=== PATIENT | female | born 1995 | race Caucasian/White ===

== ENCOUNTER 2017-03-08 10:27 | Emergency (ER) | payer BC ==
--- NOTE | 2017-03-08 10:45 | ER Document Report ---
HPI - HPI Patient complains to provider of: dysuria Onset: This morning Onset/Duration: Gradual Quality of pain: Burning Pain Level: 1 Context: Patient presents complaining of dysuria and urinary frequency that started today. Patient denies any fever, abdominal pain, or back pain. Associated Symptoms: Other - Dysuria, frequency. denies: Fever Exacerbated by: Denies Relieved by: Denies Similar symptoms previously: No Recently seen / treated by doctor: No - ROS ROS below otherwise negative: Yes Systems Reviewed and Negative: Yes All other systems reviewed and negative - CONSTITUTIONAL Constitutional: DENIES: Fever, Chills - GASTROINTESTINAL Gastrointestinal: DENIES: Abdominal Pain, Nausea - URINARY Urinary: REPORTS: Dysuria, Frequency - MUSCULOSKELETAL Musculoskeletal: DENIES: Back Pain - DERM Skin Color: Normal Skin Problems: None <PRISCA CHRISTENSEN - Last Filed: 03/08/17 14:01> Past Medical History - General Information source: Patient - Social History Smoking Status: Never Smoker Frequency of alcohol use: None Drug Abuse: None Occupation: [employer] Lives with: Family Family History: Reviewed & Not Pertinent Patient has suicidal ideation: No Patient has homicidal ideation: No Renal/ Medical History: Reports: Hx Ovarian Cysts - PCOS. Denies: Hx Peritoneal Dialysis - Immunizations Hx Diphtheria, Pertussis, Tetanus Vaccination: Yes <PRISCA CHRISTENSEN - Last Filed: 03/08/17 14:01> Vertical Provider Document - CONSTITUTIONAL Agree With Documented VS: Yes Exam Limitations: No Limitations General Appearance: WD/WN, No Apparent Distress - INFECTION CONTROL TRAVEL OUTSIDE OF THE [place] IN LAST 30 DAYS: No - HEENT HEENT: Atraumatic, Normocephalic - NECK Neck: Normal Inspection, Supple - RESPIRATORY Respiratory: Breath Sounds Normal, No Respiratory Distress, Chest Non-Tender O2 Sat by Pulse Oximetry: 100 - CARDIOVASCULAR Cardiovascular: Regular Rate, Regular Rhythm - GI/ABDOMEN Gastrointestinal: Abdomen Soft, Abdomen Non-Tender, No Organomegaly - BACK Back: Normal Inspection. negative: CVA Tenderness-Right, CVA Tenderness-Left - MUSCULOSKELETAL/EXTREMETIES Musculoskeletal/Extremeties: YAJAIRA BLACKWOOD - NEURO Level of Consciousness: Awake, Alert, Appropriate Motor/Sensory: No Motor Deficit - DERM Integumentary: Warm, Dry, No Rash <PRISCA CHRISTENSEN - Last Filed: 03/08/17 14:01> Course - Vital Signs Vital signs: Temp Pulse Resp BP Pulse Ox 97.8 F 71 16 117/76 100 03/08/17 10:31 03/08/17 10:31 03/08/17 10:31 03/08/17 10:31 03/08/17 10:31 - Laboratory Laboratory results interpreted by me: 03/08/17 11:56 Labs- Last Values Urine Color YELLOW 03/08/17 11:18 Urine Appearance HAZY 03/08/17 11:18 Urine pH 6.0 (5.0-9.0) 03/08/17 11:18 Ur Specific [place] 1.023 03/08/17 11:18 Urine Protein NEGATIVE mg/dL (NEGATIVE) 03/08/17 11:18 Urine Glucose (UA) NEGATIVE mg/dL (NEGATIVE) 03/08/17 11:18 Urine Ketones NEGATIVE mg/dL (NEGATIVE) 03/08/17 11:18 Urine Blood LARGE (NEGATIVE) H 03/08/17 11:18 Urine Nitrite NEGATIVE (NEGATIVE) 03/08/17 11:18 Urine Bilirubin NEGATIVE (NEGATIVE) 03/08/17 11:18 Urine Urobilinogen NEGATIVE mg/dL (<2.0) 03/08/17 11:18 Ur Leukocyte Esterase TRACE (NEGATIVE) H 03/08/17 11:18 Urine RBC 0-1 /HPF 03/08/17 11:18 Urine WBC 1-5 /HPF 03/08/17 11:18 Urine Bacteria TRACE /HPF 03/08/17 11:18 Urine Ascorbic Acid NEGATIVE (NEGATIVE) 03/08/17 11:18 Urine HCG, Qual NEGATIVE (NEGATIVE) 03/08/17 11:18 <PRISCA CHRISTENSEN - Last Filed: 03/08/17 14:01> - Vital Signs Vital signs: Temp Pulse Resp BP Pulse Ox 97.8 F 78 16 128/78 H 100 03/08/17 10:31 03/08/17 12:18 03/08/17 12:18 03/08/17 12:18 03/08/17 14:03 - Laboratory Laboratory results interpreted by me: 03/08/17 11:18 Urine Blood LARGE H Ur Leukocyte Esterase TRACE H <JAVIER BOOKER - Last Filed: 03/09/17 14:39> Discharge <PRISCA CHRISTENSEN - Last Filed: 03/08/17 14:01> <JAVIER BOOKER - Last Filed: 03/09/17 14:39> - Discharge Clinical Impression: UTI (urinary tract infection) Qualifiers: Urinary tract infection type: site unspecified Hematuria presence: with hematuria Qualified Code(s): N39.0 - Urinary tract infection, site not specified Condition: Stable Disposition: HOME, SELF-CARE Instructions: Trimethoprim-Sulfa ([facility]), Urinary Tract Infection ([facility]), Urinary Anesthetic Agent ([facility]) Additional Instructions: Return immediately for any new or worsening symptoms Followup with your primary care provider, call tomorrow to make a followup appointment Prescriptions: Phenazopyridine HCl [Pyridium 200 mg Tablet] 200 mg PO TID #15 tablet Sulfamethoxazole/Trimethoprim [Bactrim Ds Tablet] 1 each PO BID #10 tablet Forms: Return to Work Referrals: [facility] [Provider Group] - Follow up as needed
[2017-03-08 11:47] LABS: APPEARANCE,URINE HAZY; BILIRUBIN,URINE NEGATIVE (NEGATIVE); GLUCOSE, URINE NEGATIVE (NEGATIVE); KETONES,URINE NEGATIVE (NEGATIVE); LEUKOCYTE ESTERASE,URINE TRACE (NEGATIVE); NITRITE,URINE NEGATIVE (NEGATIVE); PROTEIN,URINE NEGATIVE (NEGATIVE); URINE SPECIFIC GRAVITY 1.023; UROBILINOGEN,URINE NEGATIVE mg/dL (<2.0)
[2017-03-08 11:48] LABS: BACTERIA,URINE TRACE /HPF; RBC,URINE 0-1 /HPF
[2017-03-08] MEDS ORDERED: PHENAZOPYRIDINE HCL 200 MG TABLET PO ONE (11:56)
[2017-03-08] MEDS ORDERED: SULFAMETHOXAZOLE/TRIMETHOPRIM 800-160 MG TABLET PO ONE (11:56)
[2017-03-08 12:20] VITALS: BP 128/78
== END 2017-03-08 12:25 | disposition home or self-care (01) ==
LOC: ER 10:27
DX: N39.0 Urinary tract infection, site not specified (principal)
CPT/HCPCS: 99283; 87086; 81025; 81001; J3490